=== PATIENT | male | born 1950 | race Caucasian/White ===

== ENCOUNTER 2017-01-18 09:49 | Inpatient (IN) | payer MEDICARE, BC ==
[~2017-01-18] VITALS: Ht 177.8 cm; Wt 106.7 kg
[2017-01-18 10:51] LABS: HEMOGLOBIN 15.2 gm/dl (14.0-17.5); RED BLOOD COUNT 4.86 M/UL (4.20-5.50); WHITE BLOOD COUNT 11.7 K/UL (4.5-11.0)
[2017-01-18 12:06] LABS: BUN/CREATININE RATIO 21 (0-10)
[2017-01-19] MEDS ORDERED: LOPID TAB 600600 MG PO (00:28)
[2017-01-19] MEDS ORDERED: FISH OIL 1,0001 EAC4 PO (00:28)
[2017-01-19] MEDS ORDERED: ZETIA10 MG PO (00:28)
[2017-01-19] MEDS ORDERED: COZAAR 50MG TAB50 MG PO (00:29)
[2017-01-19] MEDS ORDERED: LOPRESSOR 25 MG25 MG PO (00:29)
[2017-01-19] MEDS ORDERED: HYDROCHLOROTH12.5 MG PO (00:29)
[2017-01-19 05:17] LABS: HEMOGLOBIN 14.3 gm/dl (14.0-17.5); RED BLOOD COUNT 4.61 M/UL (4.20-5.50); WHITE BLOOD COUNT 12.4 K/UL (4.5-11.0)
[2017-01-19 05:31] LABS: BUN/CREATININE RATIO 23 (0-10)
[2017-01-20 07:01] LABS: HEMOGLOBIN 14.6 gm/dl (14.0-17.5); RED BLOOD COUNT 4.7 M/UL (4.20-5.50); WHITE BLOOD COUNT 10.2 K/UL (4.5-11.0)
[2017-01-20 07:18] LABS: BUN/CREATININE RATIO 18 (0-10)
[2017-01-22 05:42] LABS: BUN/CREATININE RATIO 14 (0-10)
[2017-01-23] MEDS ORDERED: OMEPRAZOLE40 MG PO (12:46)
== END 2017-01-23 15:33 | disposition home or self-care (01) | DRG 438 ==
LOC: ER1 09:49 → MED SURG 4 15:16 → ZEROF 15:16 → MED SURG 4 23:58
PROVIDERS: Emergency Medicine; ADMIT Internal Medicine
DX: K85.00 Idiopathic acute pancreatitis without necrosis or infection (principal); K26.5 Chronic or unspecified duodenal ulcer with perforation; K29.80 Duodenitis without bleeding; I10 Essential (primary) hypertension; E78.5 Hyperlipidemia, unspecified; E66.9 Obesity, unspecified; Z68.33 Body mass index [BMI] 33.0-33.9, adult; Z79.899 Other long term (current) drug therapy; Z98.890 Other specified postprocedural states
CPT/HCPCS: 36415; 76705; 80048; 80053; 80061; 81001; 82150; 82248; 83690; 83735; 84100; 84484; 85025; 85027; 93005; 96361; 96374; 96375; 96376; 99285; C9113; J1630; J1650; J2270; J2405; J7030; J7050; Q9962

== ENCOUNTER → 2020-10-16 | Outpatient (CLI) | payer MEDICARE, BC ==
[~2020-10-16] MED LIST: COZAAR 50MG TAB50 MG PO; FISH OIL 1,0001 EAC4 PO; HYDROCHLOROTH12.5 MG PO; LOPID TAB 600600 MG PO; LOPRESSOR 25 MG25 MG PO; OMEPRAZOLE40 MG PO; ZETIA10 MG PO
== END ==
LOC: KOH-I 08:54
DX: I77.811 Abdominal aortic ectasia (principal)
CPT/HCPCS: 76706-PO

== ENCOUNTER → 2020-12-02 | Outpatient (CLI) | payer MEDICARE, BC | LOC: CT 13:00 | DX: I71.02 Dissection of abdominal aorta (principal) | CPT/HCPCS: 36415; 82565; Q9967 ==

== ENCOUNTER → 2022-06-17 | Outpatient (CLI) | payer MEDICARE, BC | LOC: ECHO 11:33 → US 14:30 | DX: I10 Essential (primary) hypertension (principal); R42 Dizziness and giddiness; G45.9 Transient cerebral ischemic attack, unspecified | CPT/HCPCS: ECHO; 93306; 93880 ==